=== PATIENT | female | born 1940 | race Asian ===

== ENCOUNTER 2024-08-18 19:59 | Emergency (ER) | payer MEDICARE ==
[~2024-08-18] VITALS: Ht 157.5 cm; Wt 54.4 kg
[2024-08-18] MEDS ORDERED: TNKASE WASTE DOCUMENTATION IV ONE (20:06)
[2024-08-18] MEDS ORDERED: IV NS 0.9% 250 ML IV ONE (20:14)
[2024-08-18] MEDS ORDERED: CT SWABBABLE VALVE TRANS SET 1 EA INFUS.SET MC ONE (20:14)
[2024-08-18] MEDS ORDERED: IOHEXOL-350 100 ML VIAL IV ONE (20:14)
[2024-08-18 20:30] LABS: BASOPHILS % (AUTO) 0.6 % (0.0-2.0); EOSINOPHILS # (AUTO) 0.2 K/uL (0.0-0.7); EOSINOPHILS % (AUTO) 2.9 % (0.0-6.0); HEMATOCRIT 35 % (33-45); HEMOGLOBIN 12.1 g/dL (11.5-14.8); LYMPHOCYTES # (AUTO) 1.6 K/uL (0.8-4.8); LYMPHOCYTES % (AUTO) 22.6 % (20.0-44.0); MEAN CORPUSCULAR HEMOGLOBIN 31 PG (26.0-33.0); MEAN CORPUSCULAR HGB CONC 34 g/dl (31.0-36.0); MEAN CORPUSCULAR VOLUME 90 fL (82-100); MONOCYTES # (AUTO) 0.5 K/uL (0.1-1.30); MONOCYTES % (AUTO) 6.5 % (2.0-12.0); NEUTROPHILS # (AUTO) 4.9 K/uL (1.8-8.9); NEUTROPHILS % (AUTO) 67.4 % (43.0-81.0); PLATELET COUNT (AUTO) 249 K/uL (150-450); RED BLOOD CELL COUNT(AUTO) 3.93 MIL/uL (4.0-5.2); RED CELL DISTRIBUTION WIDTH 13.9 % (11.5-15.0); WHITE BLOOD COUNT (AUTO) 7.3 K/uL (4.3-11.0)
[2024-08-18] MEDS ORDERED: TENECTEPLASE 50 MG KIT IV ONE (20:36)
[2024-08-18 20:39] LABS: CALCIUM, SERUM 9.5 mg/dL (8.5-10.1); CREATININE 0.7 mg/dL (0.6-1.3); POTASSIUM 3.9 mmol/L (3.5-5.1)
[2024-08-18] MEDS: TENECTEPLASE 50 MG KIT IV ONE (20:44)
[2024-08-18 20:48] LABS: INR 1.08 (0.91-1.10); PARTIAL THROMBOPLASTIN TIME 26.3 SEC (24.3-34.3); PROTHROMBIN TIME 11.4 SECS (9.2-11.1)
[2024-08-18 22:25] VITALS: BP 156/79; O2SAT 97
== END 2024-08-18 22:38 | disposition short-term general hospital (02) ==
LOC: ER 20:05
DX: I67.82 Cerebral ischemia (principal); E11.9 Type 2 diabetes mellitus without complications; R94.31 Abnormal electrocardiogram [ECG] [EKG]; R51.9 Headache, unspecified; Z79.02 Long term (current) use of antithrombotics/antiplatelets; Z79.82 Long term (current) use of aspirin; Z86.73 Personal history of transient ischemic attack (TIA), and cerebral infarction without residual deficits
CPT/HCPCS: 99291; 70498; 37195; 93005; 70496; 85025; 80048; 85730; 70450; J7050; Q9967; 36415; J3101

== ENCOUNTER 2024-10-04 14:18 | Emergency (ER) | payer MEDICARE ==
[~2024-10-04] VITALS: Ht 162.6 cm; Wt 54.0 kg
[2024-10-04 14:48] VITALS: BP 138/68; TEMP 97.9
[2024-10-04] MEDS ORDERED: LIDOCAINE 1%-EPI 1:100,000 20 ML VIAL ONE (15:06)
[2024-10-04] MEDS: LIDOCAINE 1%-EPI 1:100,000 20 ML VIAL TP ONE (15:10)
[2024-10-04] MEDS ORDERED: CEPH500C2 PO (15:33)
[2024-10-04] MEDS ORDERED: SULF1TAB48 PO (15:33)
[2024-10-04 15:48] VITALS: O2SAT 98
== END 2024-10-04 15:48 | disposition home or self-care (01) ==
LOC: ER 14:32
DX: L08.9 Local infection of the skin and subcutaneous tissue, unspecified (principal); E11.9 Type 2 diabetes mellitus without complications; L72.3 Sebaceous cyst; Z86.73 Personal history of transient ischemic attack (TIA), and cerebral infarction without residual deficits
CPT/HCPCS: 99284; 10060; J3490